=== PATIENT | male | born 1995 | race Caucasian/White ===

== ENCOUNTER 2016-09-02 | Outpatient (CLI) | payer MEDICAID | END 2016-09-02 23:59 | disposition EMS.NT ==

== ENCOUNTER 2016-10-10 03:05 | Emergency (ER) | payer MEDICAID | END 2016-10-10 12:50 | disposition home or self-care (01) | DX: H66.002 Acute suppurative otitis media without spontaneous rupture of ear drum, left ear (principal); R45.851 Suicidal ideations; F32.9 Major depressive disorder, single episode, unspecified; F17.200 Nicotine dependence, unspecified, uncomplicated ==

== ENCOUNTER 2017-09-10 12:40 | Outpatient (CLI) | payer MEDICAID | END 2017-09-10 12:41 | disposition critical access hospital (66) | LOC: EMS 12:40 | PROVIDERS: ATTEND Surgery | DX: R07.9 Chest pain, unspecified (principal); R11.0 Nausea; Z72.89 Other problems related to lifestyle | CPT/HCPCS: A0425; A0429 ==

== ENCOUNTER 2017-09-10 13:10 | Emergency (ER) | payer MEDICAID ==
--- NOTE | 2017-09-10 14:53 | ED Physician Documentation ---
PD HPI CHEST PAIN - Stated complaint Stated Complaint: RAPID HEART RATE - Chief complaint Chief Complaint: Cardiac - History obtained from History obtained from: Patient - History of Present Illness Timing - onset: Other (About 6 AM he used some MDMA, he felt okay for a couple of hours, and then he laid down for a nap and it sounds like he had a panic attack when he woke up because he realized he had been napping longer than he thought and he had some palpitations and blurry vision. He feels better now.) Review of Systems Constitutional: reports: Sweats. denies: Fever, Chills Cardiac: reports: Palpitations. denies: Chest pain / pressure, Pedal edema, Calf pain Respiratory: denies: Dyspnea PD PAST MEDICAL HISTORY - Past Medical History Cardiovascular: None Respiratory: None Neuro: None Endocrine/Autoimmune: None GI: None : None HEENT: Chronic vision loss Psych: Depression Musculoskeletal: None Derm: None - Past Surgical History Past Surgical History: Yes Ortho: Other - Present Medications Home Medications: Ambulatory Orders Medication Instructions Recorded Confirmed Azithromycin [Zithromax] 250 mg PO DAILY #6 tablet 10/10/16 - Allergies Allergies/Adverse Reactions: Allergies Allergy/AdvReac Type Severity Reaction Status Date / Time Penicillins Allergy Unknown Verified 09/10/17 13:20 - Social History Does the pt smoke?: Yes Smoking Status: Current every day smoker Does the pt drink ETOH?: Yes Does the pt have substance abuse?: Yes - Immunizations Immunizations are current?: Yes - POLST Patient has POLST: No PD ED PE NORMAL - Vitals Vital signs reviewed: Yes - General General: Alert and oriented X 3, No acute distress - HEENT HEENT: PERRL, EOMI - Neck Neck: Supple, no meningeal sign, No bony TTP - Cardiac Cardiac: RRR, No murmur - Respiratory Respiratory: No respiratory distress, Clear bilaterally - Abdomen Abdomen: Non tender - Neuro Neuro: Alert and oriented X 3, managing editor 2-12 intact Eye Opening: Spontaneous Motor: Obeys Commands Verbal: Oriented GCS Score: 15 Results - Vitals Vitals: Vital Signs - 24 hr 09/10/17 13:12 Temperature 37.0 C Heart Rate 105 H Respiratory 18 Rate Blood Pressure 146/100 H O2 Saturation 100 Oxygen O2 Source Room air - EKG (time done) 1317 Rate: Rate (enter#) (109) Rhythm: Sinus tachycardia [place]: Normal Intervals: Normal [place] QRS: Normal Ischemia: Normal ST segments Computer interpretation: Agree with computer PD MEDICAL DECISION MAKING - ED course ED course: 22-year-old gentleman felt funny after using drugs and now feels okay, he was encouraged not to use drugs. Departure - Departure Disposition: Home, Self Care Clinical Impression: Drug abuse, episodic use Condition: Good Record reviewed to determine appropriate education?: Yes Instructions: ED Drug Abuse General Comments: Call your doctor to arrange a follow-up appointment, make the next available appointment. In the interim, return anytime if worse or if new symptoms develop. Your blood pressure was elevated today on check into the emergency department. This does not mean that you have hypertension, it is a common phenomenon to come to the emergency department and have elevated blood pressure. I recommend that you see your primary care physician within the week to have it rechecked when you are feeling better.
[2017-09-10 15:04] VITALS: BP 115/54
== END 2017-09-10 15:04 | disposition home or self-care (01) ==
LOC: EDUNIT# → ED 13:10
DX: F15.10 Other stimulant abuse, uncomplicated (principal); R03.0 Elevated blood-pressure reading, without diagnosis of hypertension; R00.0 Tachycardia, unspecified; F17.200 Nicotine dependence, unspecified, uncomplicated
CPT/HCPCS: 93005; 99283

== ENCOUNTER 2018-10-06 13:25 | Emergency (ER) | payer MEDICAID ==
[2018-10-06 13:30] VITALS: BP 142/82
--- NOTE | 2018-10-06 14:32 | ED Physician Documentation ---
PD HPI HEENT - Stated complaint Stated Complaint: TOOTH PX - Chief complaint Chief Complaint: Heent - History obtained from History obtained from: Patient, Family - History of Present Illness Timing - onset: How many days ago (5) Timing - duration: Days (5) Timing - details: Gradual onset, Still present Location: Tooth Improves: Other (oral gel was helping) Associated symptoms: Swollen nodes. No: Fever, Congestion, Rhinorrhea, Trismus, Unable to swallow, Cough Similar symptoms before: Diagnosis (impacted wisdom teeth.) Recently seen: Not recently seen - Additional information Additional information: 23-year-old male who has his wisdom teeth and now is having pain on all 4 of the wisdom teeth this is come on slowly over the past 5 days and he is having some swelling to his gums especially on the left upper and lower. Review of Systems Constitutional: denies: Fever Eyes: denies: Decreased vision Ears: denies: Ear pain Nose: denies: Rhinorrhea / runny nose, Congestion Throat: reports: Dental pain / toothache. denies: Sore throat Cardiac: denies: Chest pain / pressure Respiratory: denies: Dyspnea, Cough PD PAST MEDICAL HISTORY - Past Medical History Cardiovascular: None Respiratory: None Endocrine/Autoimmune: None GI: None : None HEENT: Chronic vision loss Psych: Depression Musculoskeletal: None Derm: None - Past Surgical History Past Surgical History: Yes Ortho: Other - Present Medications Home Medications: Ambulatory Orders Medication Instructions Recorded Confirmed Azithromycin [Zithromax] 250 mg PO DAILY #6 tablet 10/10/16 Clindamycin HCl [Clindamycin 300MG 300 mg PO Q6H #28 capsule 10/06/18 CAP] Hydrocodone/Acetaminophen 1 - 2 each PO Q6H PRN #14 tablet 10/06/18 [Hydrocodon-Acetaminophen 5-325] - Allergies Allergies/Adverse Reactions: Allergies Allergy/AdvReac Type Severity Reaction Status Date / Time Penicillins Allergy Unknown Verified 10/06/18 13:30 - Social History Does the pt smoke?: Yes Smoking Status: Current every day smoker Does the pt drink ETOH?: Yes Does the pt have substance abuse?: Yes - Immunizations Immunizations are current?: Yes - POLST Patient has POLST: No PD ED PE NORMAL - Vitals Vital signs reviewed: Yes (hypertensive ) - General General: Alert and oriented X 3, No acute distress, Well developed/nourished - HEENT HEENT: Atraumatic, PERRL, EOMI, Pharynx benign, Other (mild inflamation to the right TM without distortion of the landmarks. There is gingival swelling and tenderness to the wisdom teeth bilaterally upper and lower with the left lower being most involved and the right upper being least involved. ) - Neck Neck: Supple, no meningeal sign, No bony TTP - Respiratory Respiratory: No respiratory distress - Derm Derm: Normal color, Warm and dry, No rash - Extremities Extremities: No deformity, No edema - Neuro Neuro: Alert and oriented X 3, pricing clerk 2-12 intact, No motor deficit, No sensory deficit, Normal speech Eye Opening: Spontaneous Motor: Obeys Commands Verbal: Oriented GCS Score: 15 - Psych Psych: Normal mood, Normal affect Results - Vitals Vitals: Vital Signs - 24 hr 10/06/18 13:29 Temperature 36.7 C Heart Rate 88 Respiratory 16 Rate Blood Pressure 142/82 H O2 Saturation 99 Oxygen O2 Source Room air PD MEDICAL DECISION MAKING - ED course Complexity details: reviewed old records, considered differential, d/w patient, d/w family ED course: 23-year-old male with impacted wisdom teeth that appear infected is placed onto clindamycin and he will follow-up with a dentist this week. Departure - Departure Disposition: 01 Home, Self Care Clinical Impression: Pain, dental Condition: Stable Instructions: ED Tooth Pain Follow-Up: Coreen Amador MD [Primary Care Provider] - Prescriptions: Clindamycin HCl [Clindamycin 300MG CAP] 300 mg PO Q6H #28 capsule Hydrocodone/Acetaminophen [Hydrocodon-Acetaminophen 5-325] 1 - 2 each PO Q6H PRN #14 tablet PRN Reason: pain
== END 2018-10-06 14:42 | disposition home or self-care (01) ==
LOC: ED 13:25
DX: K01.1 Impacted teeth (principal); F17.200 Nicotine dependence, unspecified, uncomplicated
CPT/HCPCS: 99283

== ENCOUNTER 2018-11-04 11:04 | Emergency (ER) | payer MEDICAID ==
[2018-11-04 11:53] VITALS: BP 138/75
== END 2018-11-04 12:18 | disposition left against medical advice (07) ==
LOC: ED 11:04
DX: S09.90XA Unspecified injury of head, initial encounter (principal); W22.09XA Striking against other stationary object, initial encounter; R11.10 Vomiting, unspecified; R42 Dizziness and giddiness; Z53.21 Procedure and treatment not carried out due to patient leaving prior to being seen by health care provider

== ENCOUNTER 2018-11-19 16:39 | Outpatient (CLI) | payer MEDICAID | END 2018-11-19 16:40 | disposition EMS.NT | LOC: EMS 16:39 | PROVIDERS: ATTEND Surgery | DX: Z03.89 Encounter for observation for other suspected diseases and conditions ruled out (principal) ==

== ENCOUNTER 2018-11-25 16:08 | Emergency (ER) | payer MEDICAID ==
[2018-11-25 16:21] VITALS: BP 142/92
--- NOTE | 2018-11-25 17:37 | ED Physician Documentation ---
PD HPI WOUND RECHECK - Stated complaint Stated Complaint: MALE - Chief complaint Chief Complaint: Wound - Histroy obtained from History obtained from: Patient - History of Present Illness Location: Other (He is a painful lesion on the right side of the penis that started today. No fevers or discharge.) Review of Systems Constitutional: reports: Reviewed and negative Cardiac: reports: Reviewed and negative Respiratory: reports: Reviewed and negative PD PAST MEDICAL HISTORY - Past Medical History Cardiovascular: None Respiratory: None Endocrine/Autoimmune: None GI: None : None HEENT: Chronic vision loss Psych: Depression Musculoskeletal: None Derm: None - Past Surgical History Past Surgical History: Yes Ortho: Other - Present Medications Home Medications: Ambulatory Orders Medication Instructions Recorded Confirmed Doxycycline Hyclate 100 mg PO BID #14 capsule 11/25/18 - Allergies Allergies/Adverse Reactions: Allergies Allergy/AdvReac Type Severity Reaction Status Date / Time Penicillins Allergy Unknown Verified 11/25/18 16:21 - Social History Does the pt smoke?: Yes Smoking Status: Current every day smoker Does the pt drink ETOH?: Yes Does the pt have substance abuse?: Yes - Immunizations Immunizations are current?: Yes - POLST Patient has POLST: No PD ED PE NORMAL - Vitals Vital signs reviewed: Yes - General General: Alert and oriented X 3, No acute distress - Male Male : Other (There is a tiny sebaceous cyst on the right side of the penile shaft that was expressed during examination.) - Back Back: No CVA TTP, No spinal TTP - Derm Derm: No rash - Neuro Neuro: Alert and oriented X 3, Normal speech Results - Vitals Vitals: Vital Signs - 24 hr 11/25/18 16:18 Temperature 36.0 C L Heart Rate 98 Respiratory 20 Rate Blood Pressure 142/92 H O2 Saturation 100 Oxygen O2 Source Room air Departure - Departure Disposition: 01 Home, Self Care Clinical Impression: Epidermoid cyst of skin of penis Condition: Good Record reviewed to determine appropriate education?: Yes Instructions: ED Staph Infec Abx Tx Only Prescriptions: Doxycycline Hyclate 100 mg PO BID #14 capsule Comments: Return if worse or if not better in 3 days. Your blood pressure was elevated today on check into the emergency department. This does not mean that you have hypertension, it is a common phenomenon to come to the emergency department and have elevated blood pressure. I recommend that you see your primary care physician within the week to have it rechecked when you are feeling better.
== END 2018-11-25 17:50 | disposition home or self-care (01) ==
LOC: ED 16:08
DX: N50.89 Other specified disorders of the male genital organs (principal); R03.0 Elevated blood-pressure reading, without diagnosis of hypertension; F17.200 Nicotine dependence, unspecified, uncomplicated
CPT/HCPCS: 99281; 99283

== ENCOUNTER 2018-12-01 10:49 | Emergency (ER) | payer MEDICAID ==
[2018-12-01 11:06] VITALS: BP 138/80
--- NOTE | 2018-12-01 12:42 | ED Physician Documentation ---
PD HPI HEENT - Stated complaint Stated Complaint: POST OP TOOTH PX - Chief complaint Chief Complaint: Heent - History obtained from History obtained from: Patient - History of Present Illness Timing - onset: How many days ago (5) Timing - duration: Days (5) Timing - details: Abrupt onset, Still present Location: Tooth Improves: Medication Associated symptoms: No: Fever, Congestion Similar symptoms before: Diagnosis (wisdom tooth pain) Recently seen: Surgery - Additional information Additional information: 23-year-old male had his wisdom teeth removed on the of this month he had 22 pain pills he has run out of those he continues to have some pain and he is wanting a refill. He is having no drainage from the area no swelling or redness from the area. Review of Systems Eyes: denies: Decreased vision Ears: denies: Ear pain Nose: denies: Rhinorrhea / runny nose, Congestion Throat: reports: Dental pain / toothache Respiratory: denies: Cough PD PAST MEDICAL HISTORY - Past Medical History Cardiovascular: None Respiratory: None Endocrine/Autoimmune: None GI: None : None HEENT: Chronic vision loss Psych: Depression Musculoskeletal: None Derm: None - Past Surgical History Past Surgical History: Yes Ortho: Other - Present Medications Home Medications: Ambulatory Orders Medication Instructions Recorded Confirmed Doxycycline Hyclate 100 mg PO BID #14 capsule 11/25/18 Oxycodone HCl/Acetaminophen 1 - 2 each PO Q6H PRN #14 tablet 12/01/18 [Percocet 5-325 mg Tablet] - Allergies Allergies/Adverse Reactions: Allergies Allergy/AdvReac Type Severity Reaction Status Date / Time Penicillins Allergy Unknown Verified 12/01/18 11:06 - Social History Does the pt smoke?: Yes Smoking Status: Current every day smoker Does the pt drink ETOH?: Yes Does the pt have substance abuse?: Yes - Immunizations Immunizations are current?: Yes - POLST Patient has POLST: No PD ED PE NORMAL - Vitals Vital signs reviewed: Yes (hypertensive ) - General General: Alert and oriented X 3, No acute distress, Well developed/nourished - HEENT HEENT: Atraumatic, PERRL, EOMI, Pharynx benign, Dentition benign, Other (The surgical sites are unremarkable ) - Neck Neck: Supple, no meningeal sign - Respiratory Respiratory: No respiratory distress - Derm Derm: Normal color, Warm and dry, No rash - Extremities Extremities: No deformity, No edema - Neuro Neuro: Alert and oriented X 3, prospect manager 2-12 intact, No motor deficit, No sensory deficit, Normal speech Eye Opening: Spontaneous Motor: Obeys Commands Verbal: Oriented GCS Score: 15 - Psych Psych: Normal mood, Normal affect Results - Vitals Vitals: Vital Signs - 24 hr 12/01/18 11:04 Temperature 36.6 C Heart Rate 76 Respiratory 16 Rate Blood Pressure 138/80 H O2 Saturation 100 Oxygen O2 Source Room air PD MEDICAL DECISION MAKING - ED course Complexity details: considered differential, d/w patient ED course: 23-year-old male still in the acute phase of recovery from surgical extraction of his wisdom teeth has a benign-appearing surgical site I have refilled his prescription for 14 pills. Departure - Departure Disposition: 01 Home, Self Care Clinical Impression: Pain, dental Condition: Stable Instructions: ED Tooth Pain Follow-Up: Coreen Amador MD [Primary Care Provider] - Prescriptions: Oxycodone HCl/Acetaminophen [Percocet 5-325 mg Tablet] 1 - 2 each PO Q6H PRN #14 tablet PRN Reason: pain
== END 2018-12-01 12:48 | disposition home or self-care (01) ==
LOC: ED 10:49
DX: K08.89 Other specified disorders of teeth and supporting structures (principal); F17.200 Nicotine dependence, unspecified, uncomplicated; Z98.890 Other specified postprocedural states
CPT/HCPCS: 99283

== ENCOUNTER 2019-03-04 10:40 | Emergency (ER) | payer OTHER, MEDICAID ==
[2019-03-04 10:49] VITALS: BP 135/92
[2019-03-04] MEDS ORDERED: CHERRY SYRUP 10 ML UDC PO ONE (12:56)
[2019-03-04] MEDS ORDERED: DEXAMETHASONE 10 MG/ML VIAL PO STA (12:56)
[2019-03-04] MEDS ORDERED: KETOROLAC 60 MG/2 ML VIAL IM STA (12:56)
--- NOTE | 2019-03-04 13:56 | ED Physician Documentation ---
PD HPI BACK PAIN - Stated complaint Stated Complaint: BACK PX - Chief complaint Chief Complaint: Back Pain - History obtained from History obtained from: Patient - History of Present Illness Timing - onset: Today Timing - details: Still present Location: Mid, Right, Left Quality: Pain Worsened by: Movement, Twisting Contributing factors: Lifting, Twisting Similar symptoms before: No diagnosis - Additional information Additional information: The patient is a 23-year-old male who presents with pain in his mid back. His pain started today after pulling on his lawnmower when it got stuck. He denies numbness or weakness, urinary incontinence, or fever. The pain is worse with movement or twisting. He has a history of similar symptoms in the past. He underwent chiropractic adjustment 3 weeks ago which improved his back pain. Review of Systems Constitutional: denies: Fever Nose: denies: Congestion Throat: denies: Sore throat Cardiac: denies: Chest pain / pressure Respiratory: denies: Dyspnea, Cough GI: denies: Abdominal Pain, Nausea, Vomiting : denies: Dysuria, Incontinent Skin: denies: Rash Musculoskeletal: reports: Back pain. denies: Neck pain, Extremity pain Neurologic: denies: Focal weakness, Numbness, Headache PD PAST MEDICAL HISTORY - Past Medical History Past Medical History: Yes Cardiovascular: None Respiratory: None Neuro: None Endocrine/Autoimmune: None GI: None : None HEENT: None Psych: Depression Musculoskeletal: None Derm: None - Past Surgical History Past Surgical History: Yes Ortho: Other - Present Medications Home Medications: Ambulatory Orders Medication Instructions Recorded Confirmed Cyclobenzaprine [Flexeril] 10 mg PO TID PRN #20 tablet 03/04/19 Hydrocodone/Acetaminophen 1 - 2 each PO Q6H PRN #14 tablet 03/04/19 [Hydrocodon-Acetaminophen 5-325] - Allergies Allergies/Adverse Reactions: Allergies Allergy/AdvReac Type Severity Reaction Status Date / Time Penicillins Allergy Unknown Verified 03/04/19 10:49 - Social History Does the pt smoke?: Yes Smoking Status: Current every day smoker Does the pt drink ETOH?: Yes Does the pt have substance abuse?: Yes Substance Use and Type: Marijuana - Immunizations Immunizations are current?: Yes - POLST Patient has POLST: No PD ED PE NORMAL - Vitals Vital signs reviewed: Yes (normal) - General General: Alert and oriented X 3, Well developed/nourished - HEENT HEENT: Atraumatic - Neck Neck: No bony TTP - Cardiac Cardiac: RRR - Respiratory Respiratory: No respiratory distress, Clear bilaterally - Abdomen Abdomen: Soft, Non tender - Back Back: No CVA TTP, No spinal TTP, Other (Tender to palpation in the parathoracic musculature bilaterally.) - Derm Derm: No rash - Extremities Extremities: No edema, No calf tenderness / cord - Neuro Neuro: Alert and oriented X 3, No motor deficit, No sensory deficit Results - Vitals Vitals: Vital Signs - 24 hr 03/04/19 10:46 Temperature 36.4 C L Heart Rate 69 Respiratory 18 Rate Blood Pressure 135/92 H O2 Saturation 97 Oxygen O2 Source Room air PD MEDICAL DECISION MAKING - ED course Complexity details: re-evaluated patient, considered differential, d/w patient, d/w family, other (L&I form was completed.) ED course: The patient's presentation is most consistent with back strain in the thoracic region. It is unlikely that imaging studies would be of clinical benefit. Treatment in the emergency department included administration of ketorolac 60 mg IM and dexamethasone 10 mg orally. His symptoms moderately improved with the above treatment. He is being discharged with prescriptions for Flexeril and for Vicodin, 14 tablets. I discussed with him the expected course of illness, symptomatic treatment and outpatient follow-up, as well as potentially worrisome signs or symptoms that should prompt reevaluation in the emergency department. Departure - Departure Disposition: 01 Home, Self Care Clinical Impression: Back strain Qualifiers: Encounter type: initial encounter Qualified Code(s): S39.012A - Strain of muscle, fascia and tendon of lower back, initial encounter Condition: Stable Instructions: ED Sprain Strain Lumbar Follow-Up: Coreen Amador MD [Primary Care Provider] - Prescriptions: Cyclobenzaprine [Flexeril] 10 mg PO TID PRN #20 tablet PRN Reason: Spasms Hydrocodone/Acetaminophen [Hydrocodon-Acetaminophen 5-325] 1 - 2 each PO Q6H PRN #14 tablet PRN Reason: pain Comments: Apply ice pack to your back intermittently for the next 3 days. You can use ibuprofen, up to 800 mg 3 times daily for its anti-inflammatory effect. Take Flexeril as prescribed if needed for muscle spasms. You can use Vicodin as prescribed if needed for pain. Let pain be your guide to activity level. Follow-up with your primary physician within 2 weeks. Call to schedule appointment. Return to the emergency department if you develop increasing pain or otherwise worsening symptoms. Forms: Activity restrictions Discharge Date/Time: 03/04/19 14:20
== END 2019-03-04 14:20 | disposition home or self-care (01) ==
LOC: ED 10:40
DX: S29.012A Strain of muscle and tendon of back wall of thorax, initial encounter (principal); X50.0XXA Overexertion from strenuous movement or load, initial encounter; Y93.89 Activity, other specified; Y99.0 Civilian activity done for income or pay; F17.200 Nicotine dependence, unspecified, uncomplicated
CPT/HCPCS: 1040M; 96374; 99283; 99284; A9270

== ENCOUNTER 2019-04-14 08:00 | Outpatient (CLI) | payer OTHER ==
--- NOTE | 2019-04-14 15:24 | XRAY Report ---
Reason: STRAIN IF MUSCLE, FASCIA AND TENDON OF LOWER BACK Procedure Date: 04/14/2019 Accession Number: [id number] / [id number] Procedure: WCP - Lumbar Spine 2 View CPT Code: FULL RESULT: EXAM: LUMBOSACRAL SPINE RADIOGRAPHY EXAM DATE: 04/14/2019 09:10 AM. CLINICAL HISTORY: Strain of muscle, fascia and tendon of lower back. COMPARISONS: None. TECHNIQUE: 2 views. FINDINGS: Alignment: Normal. No spondylolisthesis or scoliosis. Bones: Five [id number] lumbar vertebral bodies are present. No fractures or bone lesions. Disks: Normal. Disk heights are maintained. Facets: No degenerative changes. Sacroiliac Joints: Unremarkable. Soft Tissues: Normal. The visualized bowel gas pattern is normal. IMPRESSION: Normal lumbar spine radiography. [facility]
== END 2019-04-14 23:59 | disposition home or self-care (01) ==
LOC: DI.WCP 08:00 → EDSTATUS 13:18 → DI.WCP 23:59
PROVIDERS: ATTEND Physician Assistant Medical
DX: S39.012A Strain of muscle, fascia and tendon of lower back, initial encounter (principal)
CPT/HCPCS: 72100

== ENCOUNTER 2019-05-07 11:11 | Outpatient (CLI) | payer MEDICAID | END 2019-05-07 11:12 | disposition critical access hospital (66) | LOC: EMS 11:11 | PROVIDERS: ATTEND Surgery | DX: L50.9 Urticaria, unspecified (principal); X58.XXXA Exposure to other specified factors, initial encounter | CPT/HCPCS: A0425; A0429; A0999 ==

== ENCOUNTER 2019-05-07 11:42 | Emergency (ER) | payer MEDICAID ==
[2019-05-07 11:47] VITALS: BP 143/67
[2019-05-07] MEDS ORDERED: DEXAMETHASONE 10 MG/ML VIAL IVP STA (11:47)
--- NOTE | 2019-05-07 12:28 | ED Physician Documentation ---
History of Present Illness - Stated complaint Stated Complaint: BEE STING - Chief complaint Chief Complaint: Allergic Rx - History obtained from History obtained from: Patient, Family - History of Present Illness Timing: Today - Additonal information Additional information: 24-year-old male was at work today when he was stung by a bee and he began to get hives on his face and the feeling of his throat closing up. He was administered Benadryl at the worksite and his throat felt better he continued to have the urticaria and by the time the ambulance arrived he did not require further treatment. Review of Systems Constitutional: denies: Fever Eyes: denies: Decreased vision Ears: denies: Ear pain Nose: denies: Congestion Throat: denies: Sore throat Cardiac: denies: Chest pain / pressure, Palpitations Respiratory: reports: Dyspnea (improved). denies: Cough GI: denies: Abdominal Pain, Nausea, Vomiting : denies: Dysuria, Frequency Skin: reports: Rash PD PAST MEDICAL HISTORY - Past Medical History Past Medical History: Yes Cardiovascular: None Respiratory: None Neuro: None Endocrine/Autoimmune: None GI: None : None HEENT: None Psych: Depression Musculoskeletal: None Derm: None - Past Surgical History Past Surgical History: Yes Ortho: Other - Present Medications Home Medications: Ambulatory Orders Medication Instructions Recorded Confirmed Cyclobenzaprine [Flexeril] 10 mg PO TID PRN #20 tablet 03/04/19 - Allergies Allergies/Adverse Reactions: Allergies Allergy/AdvReac Type Severity Reaction Status Date / Time bee venom protein (honey bee) Allergy Hives Verified 05/07/19 11:47 Penicillins Allergy Unknown Verified 05/07/19 11:47 strawberry Allergy Unknown Verified 05/07/19 11:47 Sulfa (Sulfonamide Allergy Unknown Verified 03/06/19 07:51 Antibiotics) - Social History Does the pt smoke?: Yes Smoking Status: Current every day smoker Does the pt drink ETOH?: Yes Does the pt have substance abuse?: Yes - Immunizations Immunizations are current?: Yes - POLST Patient has POLST: No PD ED PE NORMAL - Vitals Vital signs reviewed: Yes (hypertensive mild ) - General General: Alert and oriented X 3, No acute distress, Well developed/nourished - HEENT HEENT: Atraumatic, PERRL, EOMI - Neck Neck: Supple, no meningeal sign - Cardiac Cardiac: RRR, No murmur - Respiratory Respiratory: No respiratory distress, Clear bilaterally - Abdomen Abdomen: Soft, Non tender - Back Back: No CVA TTP, No spinal TTP - Derm Derm: Normal color, Warm and dry, Other (urticaria are present over the face and the back of the neck as well as the low back. ) - Extremities Extremities: No deformity, No edema - Neuro Neuro: Alert and oriented X 3, curator of collections 2-12 intact, No motor deficit, No sensory deficit, Normal speech Eye Opening: Spontaneous Motor: Obeys Commands Verbal: Oriented GCS Score: 15 - Psych Psych: Normal mood, Normal affect Results - Vitals Vitals: Vital Signs - 24 hr 05/07/19 11:45 Temperature 36.9 C Heart Rate 91 Respiratory 18 Rate Blood Pressure 143/67 H O2 Saturation 99 Oxygen O2 Source Room air PD MEDICAL DECISION MAKING - ED course Complexity details: considered differential, d/w patient, d/w family ED course: 24-year-old male with a bee sting reaction has been given Benadryl in the field he is somewhat improved he is administered dexamethasone 10 mg IVP here in the emergency department and we will have him on Benadryl every 6 hours for the next 2 days. Departure - Departure Disposition: 01 Home, Self Care Clinical Impression: Allergic reaction to bee sting Condition: Stable Instructions: ED Bite Sting Insect Gen Allergic React Follow-Up: Iveth Talamantes PA-C [Primary Care Provider] - Comments: Take Benadryl 25 mg every 6 hours for the next 2 days alternatively use Tarsha or cetirizine.
== END 2019-05-07 12:44 | disposition home or self-care (01) ==
LOC: ED 11:42
DX: T63.441A Toxic effect of venom of bees, accidental (unintentional), initial encounter (principal); X58.XXXA Exposure to other specified factors, initial encounter; L50.9 Urticaria, unspecified; R06.00 Dyspnea, unspecified; F17.200 Nicotine dependence, unspecified, uncomplicated
CPT/HCPCS: 96374; 99282

== ENCOUNTER 2019-08-27 15:37 | Outpatient (CLI) | payer OTHER, MEDICAID ==
--- NOTE | 2019-08-28 00:52 | MRI Report ---
Reason: STRAIN OF MUSCLE FASCIA AND TENDON OF LOWER BACK Procedure Date: 08/27/2019 Accession Number: [id number] / [id number] Procedure: MRI - Lumbar Spine W/O CPT Code: Final Report FULL RESULT: EXAM: MRI LUMBAR SPINE WITHOUT CONTRAST EXAM DATE: 08/27/2019 06:40 PM. CLINICAL HISTORY: STRAIN OF MUSCLE FASCIA AND TENDON OF LOWER BACK. COMPARISON: LUMBAR SPINE 2 VIEW 04/14/2019 8:51 AM. TECHNIQUE: Multiplanar, multisequence T1-weighted and fluid-sensitive sequences of the lumbar spine from T12 to S1 without contrast. Other: None. FINDINGS: Spinal Canal: The conus terminates at L1. The conus medullaris and cauda equina are unremarkable. Alignment: No scoliosis or spondylolisthesis. Bone Marrow: Five [id number] lumbar vertebral bodies are assumed. No gross fractures or bone lesions. No bone marrow replacement. Disk Levels/Facets: T12-L1: Unremarkable. L1-L2: Unremarkable. L2-L3: Unremarkable. L3-L4: Unremarkable. L4-L5: Unremarkable. L5-S1: Unremarkable. Musculature: Normal. No edema or fatty atrophy. Other: The partially visualized retroperitoneum is unremarkable. IMPRESSION: Unremarkable lumbar spine MRI. [facility]
== END 2019-08-27 15:38 | disposition home or self-care (01) ==
LOC: DI 15:37
PROVIDERS: ATTEND Physician Assistant Medical
DX: S39.012D Strain of muscle, fascia and tendon of lower back, subsequent encounter (principal)
CPT/HCPCS: 72148

== ENCOUNTER 2020-05-20 08:58 | Outpatient (CLI) | payer MEDICAID ==
--- NOTE | 2020-05-20 10:08 | XRAY Report ---
PROCEDURE: Chest 2 View X-Ray INDICATIONS: CHEST PAIN TECHNIQUE: 2 view(s) of the chest. COMPARISON: 07/01/2015 FINDINGS: Surgical changes and devices: None. Lungs and pleura: No pleural effusions or pneumothorax. Lungs are clear. Mediastinum: Mediastinal contours are normal. Heart size is normal. Bones and chest wall: No suspicious bony abnormalities. Soft tissues appear unremarkable. IMPRESSION: No acute cardiopulmonary process demonstrated radiographically. Reviewed by: Luca Means MD on 05/20/2020 10:07 AM PDT Approved by: Luca Means MD on 05/20/2020 10:07 AM PDT Station ID: [id number]
== END 2020-05-20 08:59 | disposition home or self-care (01) ==
LOC: DI.WCP 08:58
PROVIDERS: ATTEND Physician Assistant Medical
DX: R07.9 Chest pain, unspecified (principal)
CPT/HCPCS: 71046

== ENCOUNTER 2020-05-20 09:32 | Outpatient (CLI) | payer MEDICAID ==
[2020-05-20 11:52] LABS: BASOPHILS # (AUTO) 0.1 10^3/uL (0.0-0.1); BASOPHILS % (AUTO) 1.3 %; EOSINOPHILS # (AUTO) 0.2 10^3/uL (0.0-0.7); EOSINOPHILS % (AUTO) 3.1 %; HGB - HEMOGLOBIN 15.6 g/dL (14.0-18.0); LYMPHOCYTES # (AUTO) 2.1 10^3/uL (1.5-3.5); LYMPHOCYTES % (AUTO) 27.6 %; MEAN CORPUSCULAR HEMOGLOBIN 29.2 pg (27.0-31.0); MEAN CORPUSCULAR HGB CONC 32.9 g/dL (32.0-36.0); MEAN CORPUSCULAR VOLUME 88.8 fL (80.0-94.0); MEAN PLATELET VOLUME 9.7 fL (7.4-11.4); MONOCYTES # (AUTO) 0.6 10^3/uL (0.0-1.0); MONOCYTES % (AUTO) 8.4 %; NEUTROPHILS # (AUTO) 4.5 10^3/uL (1.5-6.6); NEUTROPHILS % (AUTO) 58.8 %; PLT - PLATELET COUNT 340 10^3/uL (130-450); RED BLOOD COUNT 5.34 10^6/uL (4.70-6.10); RED CELL DISTRIBUTION WIDTH 11.5 % (12.0-15.0); WHITE BLOOD COUNT 7.6 x10^3/uL (4.8-10.8)
[2020-05-20 12:38] LABS: ALBUMIN 4.5 g/dL (3.2-5.5); ALBUMIN/GLOBULIN RATIO 1.3 (1.0-2.2); ALKALINE PHOSPHATASE 59 IU/L (42-121); ALT ALANINE AMINOTRANSFERASE 69 IU/L (10-60); AST ASPARTATE AMINOTRANSFERASE 28 IU/L (10-42); BILIRUBIN,TOTAL 0.8 mg/dL (0.2-1.0); BUN - BLOOD UREA NITROGEN 21 mg/dL (6-20); CALCIUM 9.6 mg/dL (8.5-10.3); CARBON DIOXIDE - CO2 27 mmol/L (21-32); CHLORIDE 103 mmol/L (101-111); CHOL/HDL RATIO 6.1 (<5.0); CHOLESTEROL 237 mg/dL; CREATININE 1.1 mg/dL (0.6-1.2); GLUCOSE 102 mg/dL (70-100); HDL CHOLESTEROL 39 mg/dL; LDL CHOLESTEROL,CALCULATED 171 mg/dL; LDL/HDL RATIO 4.4 (<3.6); SODIUM 136 mmol/L (135-145); VLDL CHOLESTEROL 27 mg/dL
== END 2020-05-20 23:59 | disposition home or self-care (01) ==
LOC: LAB.WCP 09:32
PROVIDERS: ATTEND Physician Assistant Medical
DX: R07.9 Chest pain, unspecified (principal)
CPT/HCPCS: 36415; 80053; 80061; 83721; 84443; 85025

== ENCOUNTER 2020-09-29 08:00 | Outpatient (CLI) | payer MEDICAID ==
--- NOTE | 2020-09-29 09:09 | CARDIAC PROCEDURE NOTE ---
DATE OF SERVICE: 09/29/2020 Physician: Agnieszka Dawkins MD, [facility] INDICATION: Chest pain. CARDIAC RISK FACTORS: Morbid obesity, male gender, hyperlipidemia, tobacco use, possibly untreated hypertension. DESCRIPTION OF PROCEDURE: After signing informed consent, the patient underwent a Nino-protocol treadmill stress test. No cardiac imaging was ordered with this test. RESTING HEART RATE: 92. PEAK HEART RATE: 171 (87% predicted maximum heart rate for age). RESTING BLOOD PRESSURE: 133/71. PEAK BLOOD PRESSURE: 208/57. The patient exercised for 6 minutes and 37 seconds on a Nino-protocol treadmill stress test. He achieved a peak heart rate of 171 (87% PMHR) and 7.98 METs. The patient developed chest pain, which he rated 1/10 at the first stage, which resolved spontaneously in about 2 minutes while still exercising. The patient again developed chest pain rated 1/10 at peak, which worsened to 2/10 in recovery and subsided after approximately 6 minutes of recovery. The patient had shortness of breath in stage I and had severe shortness of breath at peak. Oxygen saturation was 94% to 99% on room air throughout the test. RESTING EKG: Normal sinus rhythm, left atrial enlargement, LVH voltage. EKG AT PEAK: No ST segment or T-wave changes developed. SUMMARY: 1. Abnormal resting EKG suggesting LVH. 2. Fair to poor exercise tolerance. 3. Atypical chest pain for angina, since it resolved during exercise. 4. Hypertensive blood pressure response to exercise. IMPRESSION: 1. Normal stress test regarding coronary artery disease. 2. Poorly controlled blood pressure. RECOMMENDATIONS: 1. Obtain an Echo to evaluate for LVH. 2. Low salt diet was discussed. Consider starting treatment of hypertension. 3. Consider imaging evaluation of his spine regarding his chest pain that comes and goes, even during exercise, given his back injury. cc: Iveth Talamantes PA-C TD: 09/29/2020 09:02 EMILY
== END 2020-09-29 08:01 | disposition home or self-care (01) ==
LOC: DI 08:00
PROVIDERS: ATTEND Physician Assistant Medical
DX: R03.0 Elevated blood-pressure reading, without diagnosis of hypertension (principal); E66.01 Morbid (severe) obesity due to excess calories; E78.5 Hyperlipidemia, unspecified; F17.200 Nicotine dependence, unspecified, uncomplicated

== ENCOUNTER 2020-10-28 09:10 | Outpatient (CLI) | payer MEDICAID | END 2020-10-28 09:11 | disposition home or self-care (01) | LOC: DI 09:10 | PROVIDERS: ATTEND Physician Assistant Medical | DX: I51.7 Cardiomegaly (principal) | CPT/HCPCS: 93306 ==

== ENCOUNTER 2021-11-07 13:24 | Outpatient (CLI) | payer OTHER | END 2021-11-07 13:25 | disposition home or self-care (01) | LOC: CAM 13:24 | PROVIDERS: ATTEND Physician Assistant Medical | DX: M54.16 Radiculopathy, lumbar region (principal) | CPT/HCPCS: 97810; 97811 ==

== ENCOUNTER 2023-03-25 09:25 | Emergency (ER) | payer MEDICAID ==
[2023-03-25 09:47] VITALS: BP 157/110
[2023-03-25 10:02] LABS: BASOPHILS # (AUTO) 0.1 10^3/uL (0.0-0.1); BASOPHILS % (AUTO) 0.8 %; EOSINOPHILS # (AUTO) 0.3 10^3/uL (0.0-0.7); EOSINOPHILS % (AUTO) 4.2 %; HCT - HEMATOCRIT 48.3 % (42.0-52.0); HGB - HEMOGLOBIN 15.9 g/dL (14.0-18.0); LYMPHOCYTES # (AUTO) 2.3 10^3/uL (1.5-3.5); LYMPHOCYTES % (AUTO) 30.6 %; MEAN CORPUSCULAR HEMOGLOBIN 29.9 pg (27.0-31.0); MEAN CORPUSCULAR HGB CONC 32.9 g/dL (32.0-36.0); MEAN CORPUSCULAR VOLUME 90.8 fL (80.0-94.0); MEAN PLATELET VOLUME 9.3 fL (7.4-11.4); MONOCYTES # (AUTO) 0.5 10^3/uL (0.0-1.0); MONOCYTES % (AUTO) 7.2 %; NEUTROPHILS # (AUTO) 4.2 10^3/uL (1.5-6.6); NEUTROPHILS % (AUTO) 56.9 %; PLT - PLATELET COUNT 350 10^3/uL (130-450); RED BLOOD COUNT 5.32 10^6/uL (4.70-6.10); RED CELL DISTRIBUTION WIDTH 11.8 % (12.0-15.0); WHITE BLOOD COUNT 7.4 x10^3/uL (4.8-10.8)
[2023-03-25 10:40] LABS: ALBUMIN 4.7 g/dL (3.2-5.5); ALBUMIN/GLOBULIN RATIO 1.6 (1.0-2.2); BILIRUBIN,TOTAL 0.5 mg/dL (0.2-1.0); CALCIUM 9.9 mg/dL (8.5-10.3); CREATININE 1.1 mg/dL (0.6-1.3); POTASSIUM 4.6 mmol/L (3.5-4.5); TOTAL PROTEIN 7.7 g/dL (6.4-8.9)
[2023-03-25 11:07] LABS: BILIRUBIN,URINE NEGATIVE (NEGATIVE); GLUCOSE, URINE (UA) NEGATIVE (NEGATIVE); KETONES,URINE (UA) NEGATIVE (NEGATIVE); LEUKOCYTE ESTERASE, URINE NEGATIVE (NEGATIVE); NITRITE,URINE NEGATIVE (NEGATIVE); OCCULT BLOOD,URINE NEGATIVE (NEGATIVE); PH,URINE 5.5 PH (5.0-7.5); PROTEIN,URINE NEGATIVE (NEGATIVE); UROBILINOGEN,URINE 0.2 (NORMAL) E.U./dL (NORMAL)
[2023-03-25 11:16] LABS: CLARITY,URINE CLEAR (CLEAR)
--- NOTE | 2023-03-25 12:04 | ED Physician Documentation ---
History of Present Illness - Stated complaint Stated Complaint: ABD PX - Chief complaint Chief Complaint: Abd Pain - History obtained from History obtained from: Patient - Additonal information Additional information: The patient comes to the emergency department chief complaint of epigastric pain. Is been going on for about 5 days and feels like a burning. The patient has had occasional nausea and vomiting. He denies any right or left upper quadrant pain. No fevers or chills. No diarrhea or bloody stools. No melena. Patient has a history of GERD but states this feels little different. He states he drinks 6 drinks of alcohol every day, whether beer or hard liquor. He does not have a known history of any liver issues or pancreatitis but is concerned that he may have pancreatitis because of his drinking. He does note that his symptoms seem to be little worse when he eats any kind of food. He has no history of gallstones. Prior to the last 5 days, he has not had any issues with pain or nausea when he eats. No other complaints at this time. PD PAST MEDICAL HISTORY - Past Medical History Cardiovascular: None Respiratory: None Neuro: None Endocrine/Autoimmune: None GI: None : None HEENT: None Psych: Depression Musculoskeletal: None Derm: None - Past Surgical History Past Surgical History: Yes Ortho: Other - Present Medications Home Medications: Ambulatory Orders Medication Instructions Recorded Confirmed No Known Home Medications 03/25/23 03/25/23 - Allergies Allergies/Adverse Reactions: Allergies Allergy/AdvReac Type Severity Reaction Status Date / Time bee venom protein (honey bee) Allergy Hives Verified 05/07/19 11:47 Penicillins Allergy Unknown Verified 05/07/19 11:47 strawberry Allergy Unknown Verified 05/07/19 11:47 Sulfa (Sulfonamide Allergy Unknown Verified 03/06/19 07:51 Antibiotics) - Social History Does the pt smoke?: Yes Smoking Status: Current every day smoker Does the pt drink ETOH?: Yes Does the pt have substance abuse?: Yes - Immunizations Immunizations are current?: Yes - POLST Patient has POLST: No PD ED PE NORMAL - Vitals Vital signs reviewed: Yes - General General: Alert and oriented X 3, No acute distress, Well developed/nourished - HEENT HEENT: Atraumatic, PERRL, EOMI, Moist mucous membranes - Neck Neck: Supple, no meningeal sign - Cardiac Cardiac: RRR, No murmur, Strong equal pulses - Respiratory Respiratory: No respiratory distress, Clear bilaterally - Abdomen Abdomen: Soft, Non distended, Other (Mild tenderness, epigastric area.) - Derm Derm: Normal color, Warm and dry, No rash - Extremities Extremities: No deformity, No edema - Neuro Neuro: Alert and oriented X 3 - Psych Psych: Normal mood, Normal affect Results - Vitals Vitals: Vital Signs - 24 hr 03/25/23 09:30 Temperature 36.7 C Heart Rate 105 H Respiratory 20 Rate Blood Pressure 157/110 H O2 Saturation 99 Oxygen O2 Source Room air - Labs Labs: Laboratory Tests 03/25/23 03/25/23 03/25/23 09:57 09:57 11:00 WBC 7.4 RBC 5.32 Hgb 15.9 Hct 48.3 MCV 90.8 MCH 29.9 MCHC 32.9 RDW 11.8 L Plt Count 350 MPV 9.3 Neut # (Auto) 4.2 Lymph # (Auto) 2.3 [place] # (Auto) 0.5 Eos # (Auto) 0.3 Baso # (Auto) 0.1 Absolute Nucleated RBC 0.00 Nucleated RBC % 0.0 Sodium 136 Potassium 4.6 H Chloride 104 Carbon Dioxide 29 Anion Gap 3.0 L BUN 17 Creatinine 1.1 Estimated GFR (MDRD) 81 L Glucose 108 H Calcium 9.9 Total Bilirubin 0.5 AST 18 ALT 31 Alkaline Phosphatase 61 Total Protein 7.7 Albumin 4.7 Globulin 3.0 Albumin/Globulin Ratio 1.6 Lipase 94 H Urine Color YELLOW Urine Clarity CLEAR Urine pH 5.5 Ur Specific [place] 1.025 Urine Protein NEGATIVE Urine Glucose (UA) NEGATIVE Urine Ketones NEGATIVE Urine Occult Blood NEGATIVE Urine Nitrite NEGATIVE Urine Bilirubin NEGATIVE Urine Urobilinogen 0.2 (NORMAL) Ur Leukocyte Esterase NEGATIVE Ur Microscopic Review NOT INDICATED Urine Culture Comments NOT INDICATED PD Medical Decision Making - ED course Complexity details: reviewed results, re-evaluated patient, considered differential, d/w patient ED course: The patient was evaluated with laboratory studies including ER abdominal panel and CBC. The ER abdominal panel showed normal LFTs, but a mildly elevated lipase of 94. Patient CBC was unremarkable. I discussed with the patient that if he has pancreatitis go it is very mild. It is also possible that he just simply has gastritis and distal esophagitis causing his pain. At this point in time, his LFTs are unremarkable and well I have offered ultrasound and further work-up for gallstones, I feel that the likelihood of common bile duct blockage is exceedingly low, as is the likelihood of cholecystitis with the normal labs. The patient would like to forego ultrasound at this time. He would like to go home. We have discussed that he may adopt a clear liquid diet, excluding alcohol, for the next few days, to give his pancreas a break. We have also discussed the possibility of getting on omeprazole, but the patient would prefer not to have any prescribed medications. He states he will take Maalox if needed. We have discussed that it would be advantageous if he gets help with his drinking with the goal of quitting. We discussed the usual indications for return. Departure - Departure Disposition: 01 Home, Self Care Clinical Impression: Epigastric pain Condition: Stable Instructions: ED Pancreatitis, ED Abdominal Pain Unkn Cause Male Comments: Overall, your labs look fairly good. You do have a very slight elevation of your pancreatic enzymes and this could represent a very mild case of pancreatitis. If you wish to pursue this possibility, you could go on a clear liquid diet for the next few days, excluding alcohol. This will give your pancreas arrest and allow it to recuperate. However, it is also very possible that you have some inflammation in your stomach and lower esophagus, either from a viral illness or from the alcohol and chronic acid reflux. You may use a coating agent, such as Maalox or Mylanta, to help with the inflammation and pain. The most accurate way to diagnose either gastritis or ulcer is with an endoscopy, where a camera is put down into your esophagus and stomach to get a direct look. Please call to make a follow-up appointment with your primary doctor to have this further evaluated. It is also best if you avoid drinking alcohol under the circumstances. Please talk to your primary doctor about getting help with your drinking. Forms: PCP List Discharge Date/Time: 03/25/23 12:13
== END 2023-03-25 12:13 | disposition home or self-care (01) ==
LOC: ED 09:25
DX: R10.13 Epigastric pain (principal); F17.200 Nicotine dependence, unspecified, uncomplicated
CPT/HCPCS: 36415; 80053; 81001; 81003; 83690; 85025; 87086; 99283